=== PATIENT | female | born 1980 | race Caucasian/White ===

== ENCOUNTER → 2017-01-12 | Outpatient (CLI) | payer OTHER ==
--- NOTE | 2017-01-12 15:53 | CR ---
EXAMINATION: Bilateral feet HISTORY: Fracture COMPARISON: None TECHNIQUE: 3 views bilaterally FINDINGS: The cortical margin of the proximal left fifth phalanx appears irregular, likely secondary to previous trauma. There is no fracture or acute osseous abnormality. Bone mineralization and join t spaces otherwise appear normal. No soft tissue swelling. IMPRESSION: 1. Likely old well-healed left proximal fifth metatarsal fracture. 2. Otherwise grossly unremarkable bilateral feet.
== END ==
LOC: MW.CHPOD 11:13
PROVIDERS: ATTEND Podiatrist Foot & Ankle Surgery
DX: S92.353A Displaced fracture of fifth metatarsal bone, unspecified foot, initial encounter for closed fracture (principal)
CPT/HCPCS: 736302650; 73630-50

== ENCOUNTER 2020-09-20 20:08 | Emergency (ER) | payer BC, OTHER ==
[2020-09-20] MEDS ORDERED: Orphenadrine 60 MG/2 ML Inj IM ONE (21:44)
[2020-09-20] MEDS ORDERED: Ketorolac 60 MG/2 ML SDV IM ONE (21:44)
--- NOTE | 2020-09-20 21:52 | EDM.PDOC ---
ED HPI GENERAL MEDICAL PROBLEM - General Chief Complaint: Back Pain or Injury Stated Complaint: PAIN ACROSS BACK, FEET NUMB Time Seen by Provider: 09/20/20 21:00 - History of Present Illness INITIAL COMMENTS - FREE TEXT/NARRATIVE: HISTORY AND PHYSICAL: History of present illness: This is a 40-year-old female with no significant past medical history who presents ER today complaining of upper back pain around the area of her bra line. Patient reports that the pain started today and is progressively worsening. Patient denies any recent fevers, shakes, chills, nausea, vomiting, diarrhea, dysuria, frequency, urgency. Patient reports pain increases with movement of her torso and inspiration. Patient reports pain increases with movement of her arms. Patient reports that the pain has been severe. Patient reports that this evening she started feeling tingling in both her fingertips as well as her toes and got concerned so came to the ED. Patient denies any weakness to her upper or lower extremities. Patient has any loss of bowel or bladder function. Patient denies any history of DVT/PE. Patient is not on any hormonal therapy. Patient does not smoke. Patient does not live a sedentary lifestyle. Patient reports that she is a stable mom and is very active. Review of systems: As per history of present illness and below otherwise all systems reviewed and negative. Past medical history: As per history of present illness and as reviewed below otherwise noncontributory. Surgical history: As per history of present illness and as reviewed below otherwise noncontributory. Social history: No reported history of drug or alcohol abuse. Family history: As per history of present illness and as reviewed below otherwise noncontributory. Physical exam: Constitutional: Patient is oriented to person, place, and time. Appears well- developed and well-nourished. No distress. HEENT: Moist mucous membranes Head: Normocephalic and atraumatic Eyes: Right eye exhibits no discharge. Left eye exhibits no discharge. No scleral icterus Neck: Normal range of motion. No tracheal deviation present. Cardiovascular: Normal rate and regular rhythm. Pulmonary: Effort normal, no respiratory distress. Abdominal: No distention Musculoskeletal: Normal range of motion Neurologic: Alert and oriented to person, place and time. Skin: [place], warm and dry. Psychiatric: Normal mood and affect. Behavior is normal. Judgment and thought content normal. Nursing note and vital signs have been reviewed Patient's ER physical exam is significant for tenderness to palpation to her upper back. Patient has severe pain with any form of palpation. Patient has no L-spine or s-spine tenderness. Patient does have tenderness to palpation diffusely across her left right and mid upper back around her bra line. No rashes identified. Patient has no Homans' sign. Patient has no calf tenderness. Patient has no splits to her RV heave. Diagnostics: Chest Xray: Normal cardiac silhouette No infiltrates or effusions identified. No PTX No evidence of acute bony fracture. As interpreted by ER MD: Karen Thoracic spine: No acute pathology as interpreted by radiology Therapeutics: Toradol IM, Norflex IM Assessment and plan: This is a 40-year-old female who presents ER today complaining of upper back pain. Pain appears to be mechanical in nature. Patient's heart rate is 72. Patient has no significant risk factors for DVT/PE. Patient with x-rays of her chest as well as thoracic spine will be given Toradol and Norflex IM and will be reevaluated. Patient is low suspicion for DVT/PE. 11:20 PM: Patient reevaluated by me. Patient reports that her pain is significantly improved with the injection of Toradol and Norflex here in the ED. Patient reports she feels much better and that the pain is extremely tolerable at this point. Patient feels very comfortable with the plan to be discharged home with prescriptions called out for muscle relaxants, ibuprofen, Ultram. I recommend to the patient to follow-up with her doctor in 1 to 2 days for reevaluation. I have also advised her to return to ER if she has any chest pain, shortness of breath, worsening discomfort or any new or concerning s ymptoms. Reassessment at the time of disposition demonstrates that the patient is in no acute distress. The patient has remained stable throughout the entire ED visit and is without objective evidence for acute process requiring urgent intervention or hospitalization. The patient is stable for discharge, counseling is provided as documented above, discussed symptomatic treatment and specific conditions for return. I have spoken with the patient/caregiver and discussed todays findings, in addition to providing specific details for the plan of care. Questions are answered and there is agreement with the plan. Definitive disposition and diagnosis as appropriate pending reevaluation and review of above. Middle Back Pain Score (Numeric/FACES): 8 - Related Data Allergies Allergy/AdvReac Type Severity Reaction Status Date / Time theophylline Allergy Hives Verified 09/20/20 20:35 Home Meds: Home Meds Dextroamphetamine/Amphetamine [Adderall] 30 mg PO BID 04/10/14 [History] Omeprazole 20 mg PO DAILY PRN 08/25/18 [History] Cyclobenzaprine [Flexeril] 10 mg PO TID PRN #20 tab 09/20/20 [Rx] Ibuprofen 600 mg PO Q6HR PRN #30 tablet 09/20/20 [Rx] traMADol [Ultram] 50 mg PO Q6H PRN #12 tab 09/20/20 [Rx] Past Medical History HEENT History: Reports: None Cardiovascular History: Reports: None Respiratory History: Reports: Other (See Below) Other Respiratory History: asthma as a child Gastrointestinal History: Reports: GERD Genitourinary History: Reports: None 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: Reports: Musculoskeletal History: Reports: Fracture Neurological History: Reports: None Psychiatric History: Reports: ADHD Endocrine/Metabolic History: Reports: Obesity/BMI 30+ Hematologic History: Reports: None Immunologic History: Reports: None Oncologic (Cancer) History: Reports: None Dermatologic History: Reports: None - Infectious Disease History Infectious Disease History: Reports: Chicken Pox - Past Surgical History Head Surgeries/Procedures: Reports: None HEENT Surgical History: Reports: Oral Surgery GI Surgical History: Reports: Bariatric Procedure, Cholecystectomy Other GI Surgeries/Procedures: hx gastaric banding Female Surgical History: Reports: Section, D&C, LEEP Musculoskeletal Surgical History: Reports: Other (See Below) Other Musculoskeletal Surgeries/Procedures:: left foot surgery x3 Social & Family History - Family History Family Medical History: No Pertinent Family History - Recreational Drug Use Recreational Drug Use: No ED ROS GENERAL - Review of Systems Review Of Systems: See Below ED EXAM, GENERAL - Physical Exam Exam: See Below Course - Vital Signs Last Recorded V/S: Last Vital Signs Temp 97.1 F 09/20/20 20:32 Pulse 93 09/20/20 20:32 Resp 18 09/20/20 20:32 BP 162/89 H 09/20/20 20:32 Pulse Ox 99 09/20/20 20:32 - Orders/Labs/Meds Labs: Laboratory Tests 09/20/20 Range/Units 21:30 Urine HCG, Qual NEGATIVE (NEGATIVE) Meds: Medications Discontinued Medications Generic Name Dose Route Start Last Admin Trade Name Yosi PRN Reason Stop Dose Admin Ketorolac Tromethamine 60 mg 09/20/20 21:44 09/20/20 22:17 Toradol IM 09/20/20 21:45 60 mg ONETIME ONE Administration Orphenadrine Citrate 60 mg 09/20/20 21:44 09/20/20 22:18 Norflex IM 09/20/20 21:45 60 mg ONETIME ONE Administration Departure - Departure Time of Disposition: 23:21 Disposition: Home, Self-Care 01 Condition: Good Clinical Impression: Musculoskeletal pain, Acute upper back pain - Discharge Information Instructions: Acute Back Pain, Adult, Musculoskeletal Pain Referrals: Bernardo Martinez MD [Primary Care Provider] - Forms: ED Department Discharge Additional Instructions: You were seen and evaluated in the ER today secondary to pain to your back. The pain in your back appears to be most likely mechanical/musculoskeletal in nature. You will be given a prescription for ibuprofen, (anti-inflammatory) Flexeril (a muscle relaxant), and Ultram (a painkiller.) Please return to the ER if you start developing worsening pain, cough, shortness of breath, chest pain. Please make an appointment to see your doctor in 2 to 3 days for reevaluation if the pain is not resolved. Return to the ER sooner if the pain worsens or if you have any new or concerning symptoms. The following information is given to patients seen in the emergency department who are being discharged to home. This information is to outline your options for follow-up care. We provide all patients seen in our emergency department with a follow-up referral. The need for follow-up, as well as the timing and circumstances, are variable depending upon the specifics of your emergency department visit. If you don't have a primary care physician on staff, we will provide you with a referral. We always advise you to contact your personal physician following an emergency department visit to inform them of the circumstance of the visit and for follow-up with them and/or the need for any referrals to a consulting specialist. The emergency department will also refer you to a specialist when appropriate. This referral assures that you have the opportunity for follow-up care with a specialist. All of these measure are taken in an effort to provide you with opti mal care, which includes your follow-up. Under all circumstances we always encourage you to contact your private physician who remains a resource for coordinating your care. When calling for follow-up care, please make the office aware that this follow-up is from your recent emergency room visit. If for any reason you are refused follow-up, please contact the [facility] Emergency Department at and asked to speak to the emergency department charge nurse. [facility] - Primary Care [address] [place] [id number] [address] Sepsis Event Note (ED) - Evaluation Sepsis Screening Result: No Definite Risk - Focused Exam Vital Signs: Vital Signs Temp Pulse Resp BP Pulse Ox 09/20/20 20:32 97.1 F 93 18 162/89 H 99
--- NOTE | 2020-09-20 22:44 | CR ---
Indication: Back pain Technique: Chest 2 views Comparison: 06/29/2012 Findings/Impression: Cardiovascular and mediastinum: Heart size and vasculature are normal in caliber and appearance. Mediastinum is within normal limits. Lungs and pleural spaces: Lungs are clear. No sign of infiltrate or mass. No sign of pleural effusion. No pneumothorax. Bones and soft tissues: No significant findings. Dictated by Priyank Barr MD @ Sep 20 2020 10:41PM Signed by Dr. Priyank Barr @ Sep 20 2020 10:42PM
--- NOTE | 2020-09-20 22:50 | CR ---
INDICATION: Back pain COMPARISON: Chest two views from 06/29/2012 TECHNIQUE: AP and lateral views of the thoracic spine were obtained along with a cross-table swimmer`s view of the cervicothoracic junction for a total of three views. FINDINGS: There is no change in minimal scoliosis of the upper thoracic spine convex towards the left. There is no sign of fracture or subluxation. The intervertebral discs are normal in height. The vertebral bodies are normal in height and are in anatomic alignment. The visualized portions of the chest remain normal in appearance. IMPRESSION: No change in minimal scoliosis of the upper thoracic spine convex towards the left. Otherwise normal thoracic spine. Dictated by Jeffrey Kelley MD @ Sep 20 2020 10:48PM Signed by Dr. Jeffrey Kelley @ Sep 20 2020 10:49PM
[2020-09-21 03:38] VITALS: BP 136/72; PULSE 81
== END 2020-09-20 23:25 | disposition home or self-care (01) ==
LOC: MW.ED 20:08
DX: M54.6 Pain in thoracic spine (principal); J45.909 Unspecified asthma, uncomplicated; F90.9 Attention-deficit hyperactivity disorder, unspecified type; E66.9 Obesity, unspecified; Z68.33 Body mass index [BMI] 33.0-33.9, adult; Z88.8 Allergy status to other drugs, medicaments and biological substances; Z79.899 Other long term (current) drug therapy
CPT/HCPCS: 71046; 72072; 81025; 96372; 99283; J1885; J2360